=== PATIENT | male | born 1950 | race Hispanic/Latino ===

== ENCOUNTER → 2016-10-01 | Outpatient (CLI) | payer MEDICARE, MEDICAID, SELFPAY | PROVIDERS: Family Provider Family Medicine; PCP Family Medicine; Visit Provider Nurse Practitioner | DX: M54.5 Low back pain (principal); M51.36 Other intervertebral disc degeneration, lumbar region; M48.06 Spinal stenosis, lumbar region; M51.37 Other intervertebral disc degeneration, lumbosacral region; M48.07 Spinal stenosis, lumbosacral region; M47.816 Spondylosis without myelopathy or radiculopathy, lumbar region; M47.817 Spondylosis without myelopathy or radiculopathy, lumbosacral region | CPT/HCPCS: 72148 ==

== ENCOUNTER → 2018-08-25 16:22 | Outpatient (CLI) | payer OTHER, SELFPAY ==
--- NOTE | 2018-08-25 16:29 | DI.RAD.S_ITS ---
PROCEDURE: XR HIP W PEL IF DONE LT MIN 4V INDICATIONS: hip pain TECHNIQUE: AP pelvis with lateral view(s) of the bilateral hip(s). COMPARISON: None. FINDINGS: Bones: No fractures or dislocations. Pelvic ring appears intact. No suspicious bony lesions. Maybe mild degenerative changes of both hips. There are mild degenerative changes of the sacroiliac joints and pubis symphysis. Soft tissues: The visualized bowel gas pattern is normal. No suspicious soft tissue calcifications. IMPRESSION: Mild degenerative changes of the hips. No fractures. Dictated by: Jv Dillon M.D. on 08/25/2018 at 16:56 Approved by: Jv Dillon M.D. on 08/25/2018 at 16:57
[2018-08-25 17:24] LABS: Add Manual Diff / Slide Review NO; Basophils Absolute Auto 0 /uL (0-100); Basophils Percent Auto 0.5 % (0-2); Eosinophils Absolute Auto 200 /uL (0-450); Eosinophils Percent Auto 2.1 % (2-4); Hematocrit 44.6 % (41-53); Hemoglobin 15.4 g/dL (13.5-17.5); Lymphocytes Absolute Auto 2100 /uL (1100-4500); Lymphocytes Percent Auto 28.5 % (25-40); Mean Corpuscular HGB Conc 34.7 % (30-36); Mean Corpuscular Hemoglobin 31.6 PG (26-34); Mean Corpuscular Volume 91.1 fL (80-100); Monocytes Absolute Auto 600 /uL (0-900); Monocytes Percent Auto 7.8 % (3-14); Neutrophils Absolute Auto 4600 /uL (1500-7000); Neutrophils Percent Auto 61.1 % (50-75); Platelet Count 389 X10^3/uL (150-400); Red Blood Cell Count 4.89 X10^6/uL (4.5-5.9); White Blood Cell Count 7.5 X10^3/uL (4.5-11.0)
[2018-08-25 17:30] LABS: Hemoglobin A1C% w Est Avg Glu 6.2 % (4.0-6.0)
[2018-08-25 17:46] LABS: Alanine Aminotransferase 23 IU/L (21-72); Albumin 4.6 g/dL (3.5-5.0); Albumin Globulin Ratio 1.7 (1.0-2.8); Alkaline Phosphatase 63 U/L (38-126); Aspartate Aminotransferase 17 IU/L (17-59); BUN Creatinine Ratio 17.5 (6-22); Bilirubin Total 1.1 mg/dL (0.2-1.3); Blood Urea Nitrogen 14 mg/dL (9-20); Calcium 10.1 mg/dL (8.4-10.2); Carbon Dioxide 27 mmol/L (22-32); Chloride 99 mmol/L (98-107); Cholesterol 163 mg/dL (140-199); Estimated Glomerular Filt Rate > 60.0 mL/min (>60); Globulin 2.7 g/dL (1.7-4.1); Glucose 172 mg/dL (80-110); HDL Cholesterol 40 mg/dL (40-60); HEMOLYSIS < 15 (0-50); Potassium 4.2 mmol/L (3.4-5.1); Sodium 139 mmol/L (137-145); Total Protein 7.3 g/dL (6.3-8.2); Triglycerides 438 mg/dL (35-150)
[2018-08-25 17:47] LABS: C-Reactive Protein Quant < 0.5 mg/dL (<1.0)
[2018-08-25 18:00] LABS: Creatinine Urine Random 86.5 mg/dL
[2018-08-25 18:03] LABS: Microalbumi Creatinin Ratio Ur 17.3 ug/mg CR (<30); Microalbumin Urine Random 1.5 mg/dL (0-1.6)
[2018-08-25 18:13] LABS: TSH w/ Reflex to FT4 1.95 uIU/mL (0.47-4.68)
[2018-08-25 18:20] LABS: Erythrocyte Sedimentation Rate 14 MM/HR (0-15)
== END ==
PROVIDERS: Family Provider Family Medicine; PCP Family Medicine; Visit Provider Family Medicine
DX: M25.551 Pain in right hip (principal); M16.0 Bilateral primary osteoarthritis of hip; I25.10 Atherosclerotic heart disease of native coronary artery without angina pectoris; I10 Essential (primary) hypertension; E78.5 Hyperlipidemia, unspecified; E11.9 Type 2 diabetes mellitus without complications; M25.50 Pain in unspecified joint
CPT/HCPCS: 36415; 73522; 80053; 80061; 82043; 82570; 83036; 84443; 85025; 85651; 86140

== ENCOUNTER → 2020-03-18 15:24 | Outpatient (CLI) | payer MEDICARE, SELFPAY ==
--- NOTE | 2020-03-18 15:26 | DI.RAD.S_ITS ---
PROCEDURE: XR KNEE LT 3V INDICATIONS: left knee pain and swelling TECHNIQUE: 3 views of the knee were acquired. COMPARISON: None. FINDINGS: Bones: No fractures or dislocations. No suspicious bony lesions. Moderate narrowing of the medial femoral tibial joint and tricompartmental periarticular osteophyte formation. Lucency along the medial distal femoral condyle. Soft tissues: Moderate joint effusion. No suspicious soft tissue calcifications. IMPRESSION: Moderate right knee joint effusion and tricompartmental knee joint degeneration, most notably involving the medial femoral tibial joint. Lucency involving the medial distal femoral condyle and osteochondral injury cannot be excluded. If indicated, MRI could be performed for further assessment. Dictated by: Watson Roy [facility] Interpreted: Lorenzo Young MD on 03/18/2020 at 16:52 Approved by: Lorenzo Young M.D. on 03/18/2020 at 17:06
[2020-03-18 16:47] LABS: Add Manual Diff / Slide Review NO; Basophils Absolute Auto 0 /uL (0-100); Basophils Percent Auto 0.7 % (0-2); Eosinophils Absolute Auto 100 /uL (0-450); Eosinophils Percent Auto 1.6 % (2-4); Hematocrit 43.4 % (41-53); Hemoglobin 14.4 g/dL (13.5-17.5); Lymphocytes Absolute Auto 2200 /uL (1100-4500); Lymphocytes Percent Auto 31.9 % (25-40); Mean Corpuscular HGB Conc 33.1 % (30-36); Mean Corpuscular Hemoglobin 30.9 PG (26-34); Mean Corpuscular Volume 93.4 fL (80-100); Monocytes Absolute Auto 600 /uL (0-900); Neutrophils Absolute Auto 3900 /uL (1500-7000); Neutrophils Percent Auto 56.8 % (50-75); Platelet Count 347 X10^3/uL (150-400); Red Blood Cell Count 4.64 X10^6/uL (4.5-5.9); Red Cell Distribution Width 13.9 % (11.6-14.8); White Blood Cell Count 6.9 X10^3/uL (4.5-11.0)
[2020-03-18 16:58] LABS: Alanine Aminotransferase 21 IU/L (<50); Albumin 4.2 g/dL (3.5-5.0); Albumin Globulin Ratio 1.7 (1.0-2.8); Alkaline Phosphatase 91 U/L (38-126); Aspartate Aminotransferase 23 IU/L (17-59); BUN Creatinine Ratio 15.7 (6-22); Bilirubin Total 0.7 mg/dL (0.2-1.3); Blood Urea Nitrogen 13 mg/dL (9-20); Calcium 9.6 mg/dL (8.4-10.2); Carbon Dioxide 23 mmol/L (22-32); Chloride 106 mmol/L (98-107); Cholesterol 127 mg/dL (140-199); Estimated Glomerular Filt Rate > 60.0 mL/min (>60); Globulin 2.5 g/dL (1.7-4.1); Glucose 104 mg/dL (80-110); HDL Cholesterol 53 mg/dL (40-60); HEMOLYSIS < 15 (0-50); LDL Cholesterol Calculated 32 mg/dL (<100); Potassium 4.6 mmol/L (3.4-5.1); Sodium 137 mmol/L (137-145); Total Protein 6.7 g/dL (6.3-8.2); Triglycerides 212 mg/dL (35-150)
[2020-03-18 17:26] LABS: TSH w/ Reflex to FT4 2.02 uIU/mL (0.47-4.68)
[2020-03-19 17:07] LABS: Microalbumin Urine Random 0.9 mg/dL (0-1.6)
[2020-03-19 17:14] LABS: Creatinine Urine Random 84.4 mg/dL; Microalbumi Creatinin Ratio Ur 10.6 ug/mg CR (<30)
== END ==
PROVIDERS: Family Provider Family Medicine; PCP Family Medicine; Referring Provider Family Medicine; Visit Provider Family Medicine
DX: M17.12 Unilateral primary osteoarthritis, left knee (principal); M25.462 Effusion, left knee; M25.562 Pain in left knee; E11.9 Type 2 diabetes mellitus without complications; I10 Essential (primary) hypertension; I25.10 Atherosclerotic heart disease of native coronary artery without angina pectoris; E78.5 Hyperlipidemia, unspecified
CPT/HCPCS: 36415; 73562; 80053; 80061; 82043; 82570; 83036; 84443; 85025

== ENCOUNTER → 2020-11-05 15:58 | Outpatient (CLI) | payer MEDICARE, SELFPAY ==
--- NOTE | 2020-11-05 16:00 | DI.RAD.S_ITS ---
PROCEDURE: XR FOOT RT MIN 3V INDICATIONS: left 5th digit pain TECHNIQUE: 3 views of the foot were acquired. COMPARISON: None. FINDINGS: Bones: No fractures or dislocations. No suspicious bony lesions. Moderate 1st metatarsophalangeal joint space narrowing and small marginal osteophytes present. Soft tissues: No tibiotalar joint effusion. Achilles tendon appears normal. 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 on 11/05/2020 at 15:51
[2020-11-05 18:28] LABS: Hemoglobin A1C% w Est Avg Glu 5.5 % (4.0-6.0)
[2020-11-05 18:35] LABS: BUN Creatinine Ratio 13.3 (6-22); Blood Urea Nitrogen 12 mg/dL (9-20); Calcium 9.6 mg/dL (8.4-10.2); Carbon Dioxide 25 mmol/L (22-32); Chloride 102 mmol/L (98-107); Estimated Glomerular Filt Rate > 60.0 mL/min (>60); Glucose 106 mg/dL (80-110); HEMOLYSIS 18 (0-50); Potassium 4.5 mmol/L (3.4-5.1); Sodium 138 mmol/L (137-145)
[2020-11-05 18:48] LABS: Creatinine Urine Random 107.7 mg/dL
[2020-11-05 18:52] LABS: Microalbumi Creatinin Ratio Ur 16.7 ug/mg CR (<30); Microalbumin Urine Random 1.8 mg/dL (0-1.6)
== END ==
PROVIDERS: Family Provider Family Medicine; PCP Family Medicine; Referring Provider Family Medicine; Visit Provider Family Medicine
DX: M19.071 Primary osteoarthritis, right ankle and foot (principal); M79.672 Pain in left foot; E11.9 Type 2 diabetes mellitus without complications; E78.5 Hyperlipidemia, unspecified; I10 Essential (primary) hypertension; I25.10 Atherosclerotic heart disease of native coronary artery without angina pectoris
CPT/HCPCS: 36415; 73630; 80048; 82043; 82570; 83036

== ENCOUNTER → 2020-12-04 14:12 | Outpatient (CLI) | payer MEDICARE, SELFPAY ==
--- NOTE | 2020-12-04 14:15 | DI.US.S_ITS ---
PROCEDURE: US CAROTID DOPPLER BI INDICATIONS: VISION CHANGES; RIGHT NECK SWELLING TECHNIQUE: Color and pulse Doppler interrogation was performed of both carotid systems, with image documentation and velocity measurements. COMPARISON: None. FINDINGS: Stenosis calculations are based on SRU (Society of Radiologists in Ultrasound) criteria. The flow velocities and the arterial waveforms are normal within both carotid arterial systems. Mild atherosclerotic plaque is seen on both sides. The estimated degree of internal carotid artery stenosis is less than 50%. Antegrade flow is confirmed within both vertebral arteries. Scanning is performed at the area of clinical right neck swelling. No ultrasound abnormalities can be seen at this site. IMPRESSION: No hemodynamically significant stenosis is seen. No ultrasound abnormalities are seen at the area of clinical swelling involving the right neck. Dictated by: Félix Mitchell M.D. on 12/04/2020 at 14:25 Approved by: Félix Mitchell M.D. on 12/04/2020 at 14:25
== END ==
PROVIDERS: Family Provider Family Medicine; PCP Family Medicine; Referring Provider Physician Assistant; Visit Provider Physician Assistant
DX: R22.1 Localized swelling, mass and lump, neck (principal); H53.9 Unspecified visual disturbance; M54.2 Cervicalgia
CPT/HCPCS: 93880

== ENCOUNTER → 2020-12-25 11:39 | Outpatient (CLI) | payer MEDICARE, SELFPAY ==
--- NOTE | 2020-12-25 11:40 | DI.RAD.S_ITS ---
PROCEDURE: XR CERVICAL SPINE 2V OR 3V INDICATIONS: Persistent R sided neck pain Suspect DJD/DDD TECHNIQUE: 3 view(s) of the cervical spine were acquired. COMPARISON: None. FINDINGS: Bones: No fractures or dislocations to the T1 level. The lateral masses of C1 appear intact on the odontoid view. No suspicious bony lesions. Disc space narrowing present throughout the exam. Mild hypertrophic facet joints present. Craniovertebral relationships and bone mineralization normal. Soft tissues: No prevertebral soft tissue swelling. IMPRESSION: Mild degenerative disc disease and arthropathy Approved by: Javy Dumont M.D. on 12/25/2020 at 16:21
== END ==
PROVIDERS: Family Provider Family Medicine; PCP Family Medicine; Referring Provider Physician Assistant; Visit Provider Physician Assistant
DX: R51.9 Headache, unspecified (principal); M47.812 Spondylosis without myelopathy or radiculopathy, cervical region; M50.30 Other cervical disc degeneration, unspecified cervical region
CPT/HCPCS: 72040

== ENCOUNTER → 2021-04-02 11:46 | Outpatient (CLI) | payer MEDICARE, SELFPAY ==
[2021-04-02 13:06] LABS: Add Manual Diff / Slide Review NO; Basophils Absolute Auto 0 /uL (0-100); Basophils Percent Auto 0.6 % (0-2); Eosinophils Absolute Auto 200 /uL (0-450); Hematocrit 43.4 % (41-53); Hemoglobin 14.8 g/dL (13.5-17.5); Lymphocytes Absolute Auto 1500 /uL (1100-4500); Mean Corpuscular HGB Conc 34.1 % (30-36); Mean Corpuscular Volume 93.8 fL (80-100); Monocytes Absolute Auto 500 /uL (0-900); Monocytes Percent Auto 7.9 % (3-14); Neutrophils Absolute Auto 3900 /uL (1500-7000); Neutrophils Percent Auto 63.5 % (50-75); Platelet Count 362 X10^3/uL (150-400); Red Blood Cell Count 4.62 X10^6/uL (4.5-5.9); Red Cell Distribution Width 13.3 % (11.6-14.8); White Blood Cell Count 6.2 X10^3/uL (4.5-11.0)
[2021-04-02 16:16] LABS: Clostridium Difficile Tox PCR Negative for C. diff (Negative)
== END ==
PROVIDERS: Family Provider Family Medicine; PCP Family Medicine; Referring Provider Physician Assistant; Visit Provider Physician Assistant
DX: R10.30 Lower abdominal pain, unspecified (principal); R19.7 Diarrhea, unspecified
CPT/HCPCS: 36415; 85025; 87045; 87493; 87899

== ENCOUNTER → 2021-07-29 16:46 | Outpatient (CLI) | payer MEDICARE, SELFPAY ==
[2021-07-29 17:28] LABS: Add Manual Diff / Slide Review NO; Basophils Absolute Auto 100 /uL (0-100); Basophils Percent Auto 1.3 % (0-2); Eosinophils Absolute Auto 100 /uL (0-450); Eosinophils Percent Auto 1.5 % (2-4); Hematocrit 42.3 % (41-53); Hemoglobin 14.9 g/dL (13.5-17.5); Lymphocytes Absolute Auto 1800 /uL (1100-4500); Lymphocytes Percent Auto 19.5 % (25-40); Mean Corpuscular HGB Conc 35.3 % (30-36); Mean Corpuscular Volume 90.8 fL (80-100); Monocytes Absolute Auto 700 /uL (0-900); Monocytes Percent Auto 8.2 % (3-14); Neutrophils Absolute Auto 6300 /uL (1500-7000); Neutrophils Percent Auto 69.5 % (50-75); Platelet Count 371 X10^3/uL (150-400); Red Blood Cell Count 4.65 X10^6/uL (4.5-5.9); Red Cell Distribution Width 13.2 % (11.6-14.8)
[2021-07-29 17:54] LABS: HEMOLYSIS < 15 (0-50); Iron 86 ug/dL (49-181)
[2021-07-29 17:56] LABS: Alanine Aminotransferase 31 IU/L (<50); Albumin 4.6 g/dL (3.5-5.0); Albumin Globulin Ratio 1.6 (1.0-2.8); Alkaline Phosphatase 95 U/L (38-126); Aspartate Aminotransferase 26 IU/L (17-59); Bilirubin Total 0.8 mg/dL (0.2-1.3); Blood Urea Nitrogen 13 mg/dL (9-20); C-Reactive Protein Quant 0.8 mg/dL (<1.0); Calcium 9.7 mg/dL (8.4-10.2); Carbon Dioxide 23 mmol/L (22-32); Chloride 103 mmol/L (98-107); Estimated Glomerular Filt Rate > 60 mL/min (>60); Globulin 2.9 g/dL (1.7-4.1); Glucose 127 mg/dL (80-110); HEMOLYSIS < 15 (0-50); Potassium 4.4 mmol/L (3.4-5.1); Sodium 138 mmol/L (137-145); Total Protein 7.5 g/dL (6.3-8.2)
[2021-07-29 18:05] LABS: Percent Iron Saturation 24 % (20-50); Total Iron Binding Capacity 354 ug/dL (261-462); Transferrin 270 mg/dL (206-381)
[2021-07-29 18:26] LABS: TSH w/ Reflex to FT4 1.24 uIU/mL (0.47-4.68)
[2021-07-29 18:43] LABS: Vitamin B12 314 pg/mL (239-931)
[2021-07-29 19:20] LABS: Erythrocyte Sedimentation Rate 44 MM/HR (0-15)
== END ==
PROVIDERS: Family Provider Family Medicine; PCP Family Medicine; Referring Provider Physician Assistant; Visit Provider Physician Assistant
DX: M79.10 Myalgia, unspecified site (principal); H54.7 Unspecified visual loss; R53.83 Other fatigue; E11.9 Type 2 diabetes mellitus without complications
CPT/HCPCS: 36415; 80053; 82607; 83036; 83540; 83550; 84443; 85025; 85651; 86140; 93005

== ENCOUNTER → 2021-08-15 08:57 | Outpatient (CLI) | payer MEDICARE, SELFPAY ==
--- NOTE | 2021-08-15 08:59 | DI.NM.S_ITS ---
PROCEDURE: NM TANVIR PERF SPECT R&S PHARM Rest and pharmacological stress myocardial perfusion SPECT with gated imaging and ejection fraction RADIOPHARMACEUTICAL: 11.7 mCi Tc-99m tetrafosmin IV at rest and 25.5 mCi Tc-99m tetrafosmin IV at peak effect of pharmacological stress. [id number] was performed. INDICATIONS: Hx of STEMI w/stent; upper chest back pain TECHNIQUE: Radiopharmaceutical was injected at peak stress test, and also at rest. SPECT images were obtained. SPECT myocardial perfusion images were displayed in short axis, horizontal long axis, and vertical long axis views. Gated images were reviewed using [employer] software. COMPARISON: None. CARDIAC STRESS: A pharmacologic stress test was performed under the supervision of an attending staff, using an infusion of regadenoson. Hemodynamic data: There is normal blood pressure and heart rate response to pharmacologic stress. Symptoms: The patient denied anginal chest pain. EKG: No diagnostic changes of ischemia; no ectopy. FINDINGS: Raw data: There is good myocardial uptake of radiotracer. No significant motion artifacts. Fnlp-bd-rffcd ratio is 0.28 (normal is less than 0.38 for tetrafosmin tracer). Left ventricle function: Gated images demonstrate normal left ventricular wall thickening. No segmental wall motion abnormalities. No transient ischemic dilation; TID is 1.0 (normal less than 1.3). Left ventricle resting end diastolic volume is 96 mL. Left ventricle stress ejection fraction is >75%; normal range is above 45%. Myocardial perfusion: There is small size, mild intensity inferoapical fixed defect with near complete resolution on prone imaging when compared to rest and supine imaging. Normal wall motion. IMPRESSION: Low risk test. Small inferoapical fixed defect with near complete resolution on prone imaging with normal wall motion is most likely consistent with artifact rather than scar. No definite ischemia. Dictated by: Amalia Patterson D.O. on 08/15/2021 at 17:46 Approved by: Amalia Patterson D.O. on 08/15/2021 at 17:51
[2021-08-15 10:55] LABS: COVID19 -Nasal RAPID Negative (Negative)
--- NOTE | 2021-08-15 14:23 | PM.TREADMILL ---
Cardiac Stress Test Report Referral & Results Date Patient Seen: 08/15/21 Requesting provider: Radha Loco Indication: Chest discomfort Rest ECG: Right bundle branch block Procedure Note: After both written and verbal informed consent the patient had an IV started by the diagnostic imaging RN and then was hooked up to the treadmill monitoring system. The patient was placed on the treadmill at 1 mile an hour with no elevation and was then injected with the Amanda scan material. The Cardiolite was then immediately administered. The patient spent an additional 2-3 minutes on the treadmill before being returned to the [facility] in the supine position. The patient had a normal response to all infused materials. Impression: Normal response to infuse materials Please see perfusion imaging report for details regarding possible ischemia Please note: Actual ECG tracings can be found in the PACS system.
== END ==
PROVIDERS: Family Provider Family Medicine; PCP Family Medicine; Referring Provider Physician Assistant; Visit Provider Physician Assistant
DX: R07.89 Other chest pain (principal); I10 Essential (primary) hypertension; I25.118 Atherosclerotic heart disease of native coronary artery with other forms of angina pectoris; E11.9 Type 2 diabetes mellitus without complications; M54.9 Dorsalgia, unspecified; R53.83 Other fatigue; Z20.822 Contact with and (suspected) exposure to COVID-19
CPT/HCPCS: 78452; 87635; 93016; 93017; 93018; A9502; J2785

== ENCOUNTER → 2022-01-06 09:25 | Outpatient (CLI) | payer MEDICARE, SELFPAY ==
[2022-01-06 12:58] LABS: Hemoglobin A1C% w Est Avg Glu 5.8 % (4.0-6.0)
[2022-01-06 13:07] LABS: Add Manual Diff / Slide Review NO; Basophils Absolute Auto 0 /uL (0-100); Basophils Percent Auto 0.4 % (0-2); Eosinophils Absolute Auto 300 /uL (0-450); Hematocrit 42.7 % (41-53); Hemoglobin 14.3 g/dL (13.5-17.5); Lymphocytes Absolute Auto 1700 /uL (1100-4500); Lymphocytes Percent Auto 22.7 % (25-40); Mean Corpuscular HGB Conc 33.6 % (30-36); Mean Corpuscular Hemoglobin 31.5 PG (26-34); Mean Corpuscular Volume 93.8 fL (80-100); Monocytes Absolute Auto 400 /uL (0-900); Monocytes Percent Auto 5.9 % (3-14); Neutrophils Absolute Auto 4900 /uL (1500-7000); Platelet Count 353 X10^3/uL (150-400); Red Blood Cell Count 4.55 X10^6/uL (4.5-5.9); Red Cell Distribution Width 13.8 % (11.6-14.8); White Blood Cell Count 7.3 X10^3/uL (4.5-11.0)
[2022-01-06 13:21] LABS: Alanine Aminotransferase 24 IU/L (<50); Albumin 4.3 g/dL (3.5-5.0); Albumin Globulin Ratio 1.7 (1.0-2.8); Alkaline Phosphatase 78 U/L (38-126); Aspartate Aminotransferase 20 IU/L (17-59); BUN Creatinine Ratio 12.5 (6-22); Blood Urea Nitrogen 11 mg/dL (9-20); Calcium 9.2 mg/dL (8.4-10.2); Carbon Dioxide 23 mmol/L (22-32); Chloride 104 mmol/L (98-107); Estimated Glomerular Filt Rate > 60 mL/min (>60); Globulin 2.6 g/dL (1.7-4.1); Glucose 102 mg/dL (80-110); HEMOLYSIS < 15 (0-50); Potassium 4.9 mmol/L (3.4-5.1); Sodium 139 mmol/L (137-145); Total Protein 6.9 g/dL (6.3-8.2)
[2022-01-06 13:44] LABS: TSH w/ Reflex to FT4 1.33 uIU/mL (0.47-4.68)
== END ==
PROVIDERS: Family Provider Family Medicine; PCP Family Medicine; Referring Provider Family Medicine; Visit Provider Family Medicine
DX: I10 Essential (primary) hypertension (principal); E11.9 Type 2 diabetes mellitus without complications; E78.2 Mixed hyperlipidemia; I25.118 Atherosclerotic heart disease of native coronary artery with other forms of angina pectoris
CPT/HCPCS: 36415; 80053; 83036; 84443; 85025

== ENCOUNTER → 2022-08-12 12:28 | Outpatient (CLI) | payer MEDICARE, SELFPAY ==
[2022-08-12 13:35] LABS: Cholesterol 140 mg/dL (140-199); HDL Cholesterol 41 mg/dL (40-60); LDL Cholesterol Calculated 30 mg/dL (<100); Triglycerides 347 mg/dL (35-150)
[2022-08-12 15:17] LABS: Creatinine Urine Random 188.5 mg/dL
[2022-08-12 15:20] LABS: Microalbumi Creatinin Ratio Ur 23.3 ug/mg CR (<30); Microalbumin Urine Random 4.4 mg/dL (0-1.6)
[2022-08-13 04:27] LABS: x Labcorp Estim. Avg Glu (eAG) 128 mg/dL (.); x Labcorp Hemoglobin A1c 6.1 % (4.8-5.6)
== END ==
PROVIDERS: Family Provider Family Medicine; PCP Family Medicine; Referring Provider Family Medicine; Visit Provider Family Medicine
DX: E11.9 Type 2 diabetes mellitus without complications (principal); E78.2 Mixed hyperlipidemia; I10 Essential (primary) hypertension
CPT/HCPCS: 36415; 80061; 82043; 82570; 83036

== ENCOUNTER → 2022-09-16 12:21 | Outpatient (CLI) | payer MEDICARE, SELFPAY ==
--- NOTE | 2022-09-16 12:22 | DI.CT.S_ITS ---
PROCEDURE: CT ABDOMEN PELVIS WO CON INDICATIONS: abdominal pain, bloating, nausea. has known umbilical hernia TECHNIQUE: Noncontrast 5 mm thick sections acquired from the diaphragms to the symphysis. 5 mm coronal and sagittal reformats were then performed. For radiation dose reduction, the following was used: automated exposure control, adjustment of mA and/or kV according to patient size. COMPARISON: None. FINDINGS: Image quality: Excellent. ABDOMEN: Lung bases: Lung bases are clear. Heart size is normal. Mild coronary artery calcification. Trace pericardial effusion. Solid organs: The liver margin is smooth. There is mild diffuse hepatic hypodensity. No discrete mass. The gallbladder surgically absent. The common duct is appropriate post cholecystectomy. Pancreas is diminutive without ductal dilatation. Normal spleen with a splenule in the inferior hilum. No adrenal masses. Normal kidneys without nephrolithiasis or hydronephrosis. No hydroureter. Peritoneum and bowel: There is moderate diverticulosis of the sigmoid colon. The colon is otherwise normal. Normal appendix. Normal stomach and small bowel loops. No free fluid or free air. Nodes and vessels: No retroperitoneal or mesenteric adenopathy by size criteria. Aorta and inferior vena cava are normal in caliber. Miscellaneous: There is a slightly narrow necked fat containing umbilical hernia with mild induration of the herniated omental fat and slightly thickened hernia sac. The neck measures 1.5 cm. There is no herniated fluid or bowel. No other midline hernias are seen. PELVIS: Genitourinary: Bladder wall thickness is normal. Moderate prostatic Miscellaneous: There is been a prior right inguinal hernia repair. Very small fat containing left inguinal hernia. No pelvic adenopathy. Bones: No suspicious bony lesions. No vertebral body compression fractures. IMPRESSION: 1. Known, mildly inflamed fat containing wall hernia. 2. Prior right inguinal hernia repair and cholecystectomy. 3. Mild hepatic steatosis. Dictated by: Malathi Plunkett M.D. on 09/16/2022 at 13:48 Approved by: Malathi Plunkett M.D. on 09/16/2022 at 13:54
== END ==
PROVIDERS: Family Provider Family Medicine; PCP Family Medicine; Referring Provider Surgery; Visit Provider Surgery
DX: K42.9 Umbilical hernia without obstruction or gangrene (principal); K57.30 Diverticulosis of large intestine without perforation or abscess without bleeding; K40.90 Unilateral inguinal hernia, without obstruction or gangrene, not specified as recurrent; K76.0 Fatty (change of) liver, not elsewhere classified; R19.7 Diarrhea, unspecified; R14.0 Abdominal distension (gaseous); R11.0 Nausea; R10.9 Unspecified abdominal pain; Z90.49 Acquired absence of other specified parts of digestive tract
CPT/HCPCS: 74176

== ENCOUNTER 2022-11-06 09:42 | Day surgery (SDC) | payer MEDICARE, SELFPAY ==
--- NOTE | 2022-11-06 | PATH_ITS ---
[facility] Accession Number: [id number] No. of containers..01 Tissue . 01 Material submitted: . colon - TRANSVERSE POLYP . 01 Diagnosis: Transverse Colon, Polyp: Tubular adenoma. [facility] 11/13/2022 1558 Local . 01 Electronically signed: . Charleen Stringer MD, Pathologist NPI- [id number] . 01 Gross description: . TRANSVERSE POLYP: Received in formalin is 1 fragment(s) of freeman, soft tissue measuring 0.4 x 0.3 x 0.2 cm submitted entirely in 1 cassette(s) /AAY 11/10/2022 0024 Local . 01 Pathologist provided ICD-10: D12.3 . 01 CPT . 809148 Specimen Comment: A courtesy copy of this report has been sent to [facility] Performed at: 01 [facility] [address] [place] [address] [id number] MD Alonzo Ortiz MD Phone: [phone]
[2022-11-06 09:55] VITALS: BP 126/84; PULSE 69; RESP 16; TEMP 36.4; O2SAT 97; BMI 29.5
[2022-11-06] MEDS: FLEETS ENEMA 1 EACH PR (10:38)
[2022-11-06] MEDS: LACTATED RINGERS 1,000 ML 42 ML IV (10:39)
--- NOTE | 2022-11-06 11:25 | P.HP_ITS ---
History of Present Illness History of Present Illness Date Patient Seen: 11/06/22 Time Patient Seen: 11:25 [place] [facility] [place] Mr. Eliceo Farias is a 72-year-old male who I have seen in my office and have discussed colonoscopy previously. This is his 2nd colonoscopy the 1st 1 was 12 years ago and [place]. He does not recall any history of polyps and has no family history of colon cancer. He has no concerning symptoms of bleeding changes in bowel habits, has no further questions and would like to proceed. He did receive an enema in the preoperative unit because the stool was solid according to the bedside nurse. I offered him the option of continuing the prep and asking if 1 of my partners would do the procedure tomorrow while he stays in observation were completely rescheduling or proceeding today knowing that we may not see what we need to see and have to reschedule any way. He understood the options and chose to proceed today. [facility] Medical History Anxiety Arthritis (1999) Bilateral hip pain BPH (benign prostatic hyperplasia) Chest wall pain Chicken pox (~195) Chronic back pain Coronary artery disease Coronary atherosclerosis (2012) Elevated PSA Essential hypertension (11/11/11) Glaucoma (2014) Hearing loss History of [place] fever (1979) Hyperlipidemia (11/11/11) Lumbar stenosis with neurogenic claudication Malaria (~1969) Mumps (~1954) Myocardial infarction (01/2013) Osteoarthritis of spine with radiculopathy, lumbar region (12/14/16) Pneumonia (~1999) Preglaucoma, unspecified, bilateral Retinal detachment (2000) Retinal vein occlusion of right eye (2013) Shoulder pain (2010) Type 2 diabetes mellitus without complication (03/29/12) Surgical History Anesthesia complication (12/2010) H/O heart artery stent (01/2013) H/O inguinal hernia repair (05/1992) History of detached retina repair (2000) Status post cholecystectomy (~2003) Status post epidural steroid injection (04/16/17) Status post epidural steroid injection Status post epidural steroid injection (04/16/17) Status post epidural steroid injection Status post epidural steroid injection Status post rotator cuff repair (12/2010) Family History Father Age: 94 Hypertension High cholesterol Family/Other No problems noted. Family/Other No problems noted. Mother No problems noted. Sister No problems noted. Sister No problems noted. Sister No problems noted. Social History marital status: household members: spouse Smoking Status: Never smoker alcohol intake: never substance use type: does not use Meds Home Medications and Allergies Home Medications Medication Instructions Recorded Confirmed Type atorvastatin 40 mg tablet (Lipitor) 40 mg PO DAILY 11/01/19 11/06/22 History cimetidine 200 mg tablet (Tagamet 200 mg PO QACHS 04/02/21 11/06/22 History HB) acetaminophen 300 mg-codeine 30 mg 1 tab PO DAILY PRN pain #30 tabs 03/26/22 11/06/22 Rx tablet metformin 1,000 mg tablet See Rx Instructions .Route 03/27/22 11/06/22 Rx .COMPLEX #180 tabs blood sugar diagnostic (OneTouch #100 ea 04/27/22 09/29/22 Rx Ultra Test strips) amlodipine 10 mg tablet 10 mg PO DAILY 05/14/22 11/06/22 History aspirin 81 mg chewable tablet 81 mg PO QDAY ##0 05/14/22 11/06/22 History albuterol sulfate 90 mcg/actuation See Rx Instructions .Route 06/10/22 11/06/22 Rx aerosol inhaler .COMPLEX #9 grams tamsulosin 0.4 mg capsule See Rx Instructions .Route 06/11/22 11/06/22 Rx .COMPLEX #90 caps glipizide 5 mg tablet 5 mg PO DAILY #90 tabs 07/20/22 11/06/22 Rx Disabled Parking #1 ea 07/28/22 09/29/22 Rx finasteride 5 mg tablet See Rx Instructions .Route 08/13/22 11/06/22 Rx .COMPLEX #90 tabs zolpidem 10 mg tablet 5 mg PO BEDTIME PRN insomnia #30 10/07/22 11/06/22 Rx tabs metoprolol succinate 50 mg 75 mg PO BID #270 tabs 10/13/22 11/06/22 Rx tablet,extended release 24 hr sodium,potassium,mag sulfates 17.5 See Rx Instructions PO .COMPLEX 10/13/22 11/06/22 Rx gram-3.13 gram-1.6 gram oral soln #354 mL (Suprep Bowel Prep Kit) Allergies Allergy/AdvReac Type Severity Reaction Status Date / Time venom-honey bee Allergy Severe Anaphylaxis Verified 09/29/22 11:32 [BEE VENOM (HONEY BEE)] methylprednisolone AdvReac Severe psychosis Verified 11/06/22 10:43 [From Medrol] lisinopril AdvReac Mild Cough Verified 09/29/22 11:32 niacin AdvReac Mild FLUSHING Verified 09/29/22 11:32 NSAIDS (Non-Steroidal AdvReac Unknown Verified 11/06/22 10:41 Anti-Inflamma Exam Vital Signs (past 8 hours): - 11/06/22 09:55 Temperature 97.5 F L Pulse Rate 69 Respiratory Rate 16 Blood Pressure 126/84 Pulse Oximetry 97 Oxygen Delivery Method Room Air Oxygen Delivery Method Room Air Const General: cooperative, healthy appearing and comfortable HENMT Head: normal to inspection Mouth: oral mucosae normal Resp Effort & Inspection: normal respiratory effort and able to speak in complete sentences GI Palpation: soft and No tender Assessment & Plan Assessment and plan (1) Screening for colon cancer: Status: Acute Plan Presents today for screening colonoscopy I discussed the risks benefits and alternatives including but not limited to perforation of the colon and an incomplete exam he fully understands these risks and would like to proceed.
--- NOTE | 2022-11-06 12:19 | PM.OP.COLON ---
Operative Date/Time/Diagnoses Date of procedure: 11/06/22 Time of procedure: 12:19 Pre-op diagnosis: Screening for colon cancer Post-op diagnosis: same Procedure & Clinicians Study performed: Colonoscopy biopsy Same procedure as scheduled: Yes Indications: Screening for colon cancer no family history Surgeon: Meg Conde Procedure Notes Procedure in detail: Patient was taken to the endoscopy suite and placed in a left lateral decubitus position. A time-out was performed. With the help of anesthesiologist conscious sedation was induced and monitored throughout the case. A digital rectal exam was performed and there were no masses or strictures. There was a left lateral external hemorrhoid. The colonoscope was introduced into the anal canal and advanced through to the cecum. A photograph of the appendiceal orifice was obtained. The bowel prep was between poor and good [place] bowel prep score of 1. Although there were segments of the colon where an adequate exam was achieved there were other segments where smaller polyps may have been missed due to the thickness of the prep. The scope was then withdrawn for a total of 20 minutes with copious suction and irrigation making every effort to examine the mucosa as well as possible. One very small transverse colon polyp was seen and removed with a biopsy forceps. There were also scattered diverticula throughout the sigmoid colon. The scope was then retroflexed and a photograph of the internal hemorrhoidal piles was obtained. Findings: divertiulosis Specimen(s): other (Transverse colon polyp) Impression: Poor bowel prep [place] bowel prep score of 1 Post-procedure Plan for aftercare: I think that I achieved an adequate exam to say that there were no large polyps and no colon cancer however a I am concerned that some smaller polyps may have been overlooked and therefore I am recommending a 5 year follow-up because of the quality of the prep.
[2022-11-06 12:23] VITALS: BP 113/70; PULSE 56; RESP 10; TEMP 36.9; O2SAT 96
[2022-11-06 12:28] VITALS: BP 116/69; PULSE 64; RESP 14; O2SAT 93
[2022-11-06 12:34] VITALS: BP 114/76; PULSE 58; RESP 12; O2SAT 95
[2022-11-06 12:39] VITALS: BP 128/83; PULSE 56; RESP 13; O2SAT 96
== END 2022-11-06 12:55 | disposition home or self-care (01) ==
PROVIDERS: Family Provider Family Medicine; PCP Family Medicine; Referring Provider Surgery; Visit Provider Surgery
PROC: 0DJD8ZZ Inspection of Lower Intestinal Tract, Via Natural or Artificial Opening Endoscopic (ICD-10-PCS; CPT 45378; principal; 2022-11-06 11:00)
DX: Z12.11 Encounter for screening for malignant neoplasm of colon (principal); K57.30 Diverticulosis of large intestine without perforation or abscess without bleeding; D12.3 Benign neoplasm of transverse colon
CPT/HCPCS: 45380; J2704

== ENCOUNTER 2023-02-03 10:56 | Day surgery (SDC) | payer OTHER, MEDICARE, SELFPAY ==
[2023-02-01 13:49] VITALS: BMI 28.8
[2023-02-03] VITALS (9 sets, daily range): BP systolic 108–165; BP diastolic 69–89; PULSE 70–700; RESP 14–20; TEMP 36.3–36.6; O2SAT 94–96; BMI 29.6
[2023-02-03] MEDS: LACTATED RINGERS 1,000 ML 21 ML IV ×2 (11:41→13:24)
--- NOTE | 2023-02-03 12:39 | P.HP_ITS ---
History of Present Illness History of Present Illness Date Patient Seen: 02/03/23 Time Patient Seen: 12:39 [place] complaint: [facility] [place]arrative: 72-year-old here for elective open umbilical hernia repair. No interval changes in health. Please refer to the H and P from December 2022 for further detail. [facility] Medical History Preglaucoma, unspecified, bilateral Lumbar stenosis with neurogenic claudication Chest wall pain Coronary artery disease Pneumonia (~1999) Bilateral hip pain Chronic back pain Arthritis (1999) Shoulder pain (2010) Malaria (~1969) Retinal vein occlusion of right eye (2013) Retinal detachment (2000) Hearing loss Glaucoma (2014) Elevated PSA Coronary atherosclerosis (2012) Myocardial infarction (01/2013) Chicken pox (~1954) BPH (benign prostatic hyperplasia) Mumps (~1954) Anxiety History of [facility] fever (1979) Osteoarthritis of spine with radiculopathy, lumbar region (12/14/16) Type 2 diabetes mellitus without complication (03/29/12) Hyperlipidemia (11/11/11) Essential hypertension (11/11/11) Surgical History (Updated 02/01/23 @ 13:59 by Liberty Espinoza RN) Hx of colonoscopy (11/2022) Status post epidural steroid injection Status post epidural steroid injection Status post epidural steroid injection (04/16/17) Status post epidural steroid injection Status post epidural steroid injection (04/16/17) Anesthesia complication (12/2010) H/O heart artery stent (01/2013) History of detached retina repair (2000) H/O inguinal hernia repair (05/1992) Status post rotator cuff repair (12/2010) Status post cholecystectomy (~2003) Family History Father Age: 94 Hypertension High cholesterol Family/Other No problems noted. Family/Other No problems noted. Mother No problems noted. Sister No problems noted. Sister No problems noted. Sister No problems noted. Social History marital status: household members: spouse Smoking Status: Never smoker alcohol intake: never substance use type: does not use Meds Home Medications and Allergies Home Medications Medication Instructions Recorded Confirmed Type atorvastatin 40 mg tablet (Lipitor) 40 mg PO DAILY 11/01/19 02/03/23 History cimetidine 200 mg tablet (Tagamet 200 mg PO QACHS 04/02/21 02/03/23 History HB) blood sugar diagnostic (OneTouch #100 ea 04/27/22 12/31/22 Rx Ultra Test strips) amlodipine 10 mg tablet 10 mg PO DAILY 05/14/22 02/03/23 History aspirin 81 mg chewable tablet 81 mg PO QDAY ##0 05/14/22 02/03/23 History albuterol sulfate 90 mcg/actuation See Rx Instructions .Route 06/10/22 02/03/23 Rx aerosol inhaler .COMPLEX #9 grams tamsulosin 0.4 mg capsule See Rx Instructions .Route 06/11/22 02/03/23 Rx .COMPLEX #90 caps glipizide 5 mg tablet 5 mg PO DAILY #90 tabs 07/20/22 02/03/23 Rx Disabled Parking #1 ea 07/28/22 12/31/22 Rx finasteride 5 mg tablet See Rx Instructions .Route 08/13/22 02/03/23 Rx .COMPLEX #90 tabs zolpidem 10 mg tablet 5 mg (1/2 x 10 mg) PO BEDTIME PRN 10/07/22 02/03/23 Rx insomnia #30 tabs metoprolol succinate 50 mg 75 mg (1.5 x 50 mg) PO BID #270 10/13/22 02/03/23 Rx tablet,extended release 24 hr tabs acetaminophen 300 mg-codeine 30 mg 1 tab PO DAILY PRN pain #20 tabs 12/28/22 02/03/23 Rx tablet metformin 1,000 mg tablet 1,000 mg PO BID #180 tabs 01/11/23 02/03/23 Rx Allergies Allergy/AdvReac Type Severity Reaction Status Date / Time venom-honey bee Allergy Severe Anaphylaxis Verified 02/03/23 11:34 [BEE VENOM (HONEY BEE)] methylprednisolone AdvReac Severe psychosis Verified 02/03/23 11:34 [From Medrol] lisinopril AdvReac Mild Cough Verified 02/03/23 11:34 niacin AdvReac Mild FLUSHING Verified 02/03/23 11:34 NSAIDS (Non-Steroidal AdvReac Unknown Verified 02/03/23 11:34 Anti-Inflamma Exam Vital Signs (past 8 hours): - 11/29/23 11:22 Temperature 97.7 F Pulse Rate 70 Respiratory Rate 17 Blood Pressure 165/89 H Pulse Oximetry 95 Oxygen Delivery Method Room Air Oxygen Delivery Method Room Air Narrative Exam Narrative: General adult man alert oriented no acute distress Abdomen soft nontender reducible umbilical hernia. Assessment & Plan Assessment & Plan narrative: 72-year-old male with a reducible symptomatic umbilical hernia here for elective repair. Overview of the operation again discussed. Major operative risks including hemorrhage, infection, recurrence were discussed. Questions have been answered. He provides his written and verbal consent to proceed.
--- NOTE | 2023-02-03 12:40 | SUR.OPER ---
Supine on padded OR bed, head on pillow, arms secured on padded arm boards at <90 degrees abduction, legs uncrossed, safety belt at thigh, tape over blanket over lower legs.
[2023-02-03] MEDS: CEFAZOLIN 2 GM/100 ML PREMIX 100 ML IV (12:55)
[2023-02-03] MEDS: BUPIVACAINE 0.25% (PF) VIAL 30 ML INJ (13:09)
--- NOTE | 2023-02-03 13:56 | PM.OP.1 ---
Operative Date/Time/Diagnoses Date of procedure: 02/03/23 Time of procedure: 14:53 Pre-op diagnosis: Umbilical hernia Post-op diagnosis: same Procedure & Clinicians Procedure: Open umbilical hernia repair Same procedure as scheduled: Yes Indications: Symptomatic reducible umbilical hernia Surgeon: Josh Mendosa Click Yes if Unassisted: Yes Anesthesia Type: General Operative Notes Findings: 2 cm fascial defect containing viable omentum Specimen(s): none sent Estimated Blood Loss (mL): 20 Procedure in detail: Patient was brought to the operating room placed supine on the table. Bilateral lower extremity compression devices were applied. General anesthesia was induced and they were intubated with an endotracheal tube. They received 2 g of Ancef prior to skin incision. They were prepped and draped in sterile fashion. A time-out was performed. A curvilinear incision was made inferior to the umbilicus. The subcutaneous tissues were divided. The umbilical hernia was identified and the hernia sac was dissected off the umbilical skin and circumferentially off of the fascia defect. The hernia sac was sharply opened and contained viable omentum. The omentum was reduced back into the abdomen. Using blunt dissection I carefully carefully freed the hernia sac from beneath the fascia defect in order to accomodate the mesh. The fascia defect was 2 cm in maximal diameter. A Bard Ventralex ST hernia patch 6.4 cm was inserted beneath the fascia defect and above the peritoneum in a sublay position. The mesh was anchored in multiple locations using Ethibond suture to the fascia and the fascial defect was closed over the mesh. The umbilical skin was tacked to the subcutaneous tissues and then the remainder of the subcutaneous tissues were reapproximated using 3 0 Vicry,l skin closed with 4 0 Monocryl followed by the application of Dermabond . Sponge instrument count at the end of the operation was correct. Patient tolerated procedure well was extubated and transferred to postoperative care unit in stable condition. Complications: none Post-operative Condition: stable Disposition: same day surgery
[2023-02-03] MEDS: ACETAMINOPHEN 325 MG TABLET 975 MG PO (14:10)
[2023-02-03] MEDS: OXYCODONE IR 5 MG TABLET PO ×2 (14:10→14:57)
== END 2023-02-03 15:00 | disposition home or self-care (01) ==
PROVIDERS: Family Provider Family Medicine; PCP Family Medicine; Referring Provider Surgery; Visit Provider Surgery
PROC: (CPT 49591; principal; 2023-02-03 12:45)
DX: K42.9 Umbilical hernia without obstruction or gangrene (principal)
CPT/HCPCS: 49591; 82962; J0690; J1100; J2405; J3010

== ENCOUNTER → 2023-09-21 12:56 | Outpatient (CLI) | payer MEDICARE, SELFPAY ==
[2023-09-21 14:23] LABS: Add Manual Diff / Slide Review NO; Basophils Absolute Auto 0 /uL (0-100); Basophils Percent Auto 0.7 % (0-2); Eosinophils Absolute Auto 200 /uL (0-450); Eosinophils Percent Auto 3.4 % (2-4); Hematocrit 42.6 % (41-53); Hemoglobin 14.6 g/dL (13.5-17.5); Lymphocytes Absolute Auto 1800 /uL (1100-4500); Lymphocytes Percent Auto 27.6 % (25-40); Mean Corpuscular HGB Conc 34.3 % (30-36); Mean Corpuscular Hemoglobin 32.4 PG (26-34); Mean Corpuscular Volume 94.4 fL (80-100); Monocytes Absolute Auto 500 /uL (0-900); Monocytes Percent Auto 7.3 % (3-14); Neutrophils Absolute Auto 4100 /uL (1500-7000); Platelet Count 359 X10^3/uL (150-400); Red Blood Cell Count 4.51 X10^6/uL (4.5-5.9); Red Cell Distribution Width 13.1 % (11.6-14.8); White Blood Cell Count 6.7 X10^3/uL (4.5-11.0)
[2023-09-21 14:56] LABS: Alanine Aminotransferase 27 IU/L (<50); Albumin 4.6 g/dL (3.5-5.0); Albumin Globulin Ratio 1.7 (1.0-2.8); Alkaline Phosphatase 81 U/L (38-126); Aspartate Aminotransferase 25 IU/L (17-59); BUN Creatinine Ratio 14.8 (6-22); Bilirubin Total 0.9 mg/dL (0.2-1.3); Blood Urea Nitrogen 13 mg/dL (9-20); Calcium 9.6 mg/dL (8.4-10.2); Carbon Dioxide 23 mmol/L (22-32); Chloride 105 mmol/L (98-107); Estimated Glomerular Filt Rate > 60 mL/min (>60); Globulin 2.7 g/dL (1.7-4.1); Glucose 99 mg/dL (80-110); HEMOLYSIS < 15 (0-50); Potassium 5.1 mmol/L (3.4-5.1); Sodium 137 mmol/L (137-145); Total Protein 7.3 g/dL (6.3-8.2)
[2023-09-21 15:01] LABS: Hemoglobin A1C% w Est Avg Glu 6.2 % (4.0-6.0)
[2023-09-21 15:24] LABS: TSH w/ Reflex to FT4 1.62 uIU/mL (0.47-4.68)
[2023-09-21 15:30] LABS: Microalbumin Urine Random 3.4 mg/dL (0-1.6)
== END ==
PROVIDERS: Family Provider Family Medicine; PCP Family Medicine; Referring Provider Family Medicine; Visit Provider Family Medicine
DX: I10 Essential (primary) hypertension (principal); E78.5 Hyperlipidemia, unspecified
CPT/HCPCS: 36415; 80053; 82043; 82570; 83036; 84443; 85025

== ENCOUNTER → 2023-10-14 11:44 | Outpatient (CLI) | payer MEDICARE, SELFPAY ==
--- NOTE | 2023-10-14 11:45 | DI.RAD.S_ITS ---
PROCEDURE: XR SHOULDER RT MIN 2V INDICATIONS: Fell 9 months ago - pain AC joint and deltoid TECHNIQUE: 3 views of the shoulder were acquired. COMPARISON: None. FINDINGS: Bones: No fractures or dislocations. 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 No suspicious bony lesions. Visualized ribs appear intact. Soft tissues: No suspicious soft tissue calcifications. IMPRESSION: No acute osseous abnormalities. 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 Dictated by: Martín Monahan M.D. on 10/14/2023 at 16:12 Approved by: Martín Monahan M.D. on 10/14/2023 at 16:13
== END ==
PROVIDERS: Family Provider Family Medicine; PCP Family Medicine; Referring Provider Physician Assistant; Visit Provider Physician Assistant
DX: M25.511 Pain in right shoulder (principal); E11.40 Type 2 diabetes mellitus with diabetic neuropathy, unspecified; M19.011 Primary osteoarthritis, right shoulder
CPT/HCPCS: 73030

== ENCOUNTER → 2024-05-02 08:08 | Outpatient (CLI) | payer MEDICARE, SELFPAY ==
--- NOTE | 2024-05-02 08:12 | DI.ECHO.S_ITS ---
[facility]+ [facility] : : [address] : : [place] : : [id number] : : Phone: [phone] Echocardiogram Report + + :Name: PATRICE RIOS Study Date: 05/02/2024 Height: 68 in : :Hospital ReadingLocation: Weight: 195 lb : : Gender: Male BSA: 2.0 m2 : :: 1950 Age: 73 yrs BP: 126/83 mmHg: :Reason For Study: CORONARY ARTERY DISEASE : :Ordering Physician: ASAF, : :TJ Performed By: Gabriela Alcantar : :Referring: TJ RON : + + Interpretation Summary The ejection fraction is estimated to be 55-60%. There is mild aortic regurgitation. There is no pericardial effusion. Procedure: A two-dimensional transthoracic echocardiogram with color flow and Doppler was performed. The study quality was technically adequate. There is no prior echocardiogram noted for this patient. The patient was in sinus rhythm with heart rates between 55-67 bpm during the exam. Left Ventricle: The left ventricle is normal in size. Left ventricular wall thickness is borderline increased. The ejection fraction is estimated to be 55-60%. Left ventricular wall motion is normal. Right Ventricle: The right ventricle is normal in size and function. Atria: The left atrial size is normal. Right atrial size is normal. There is no Doppler evidence for an interatrial shunt. Mitral Valve: The mitral valve leaflets appear to open well. There is trace mitral regurgitation. Aortic Valve: There is no aortic valve stenosis. There is mild aortic regurgitation. Tricuspid Valve: The tricuspid valve leaflets are thin and pliable. There is trace tricuspid regurgitation. Pulmonary artery pressures cannot be estimated because of the lack of a measurable TR jet velocity. Pulmonic Valve: The pulmonic valve leaflets are thin and pliable; valve motion is normal. There is a trace or physiologic amount of pulmonic regurgitation. Great Vessels: The aortic root is normal size. The dimensions of the ascending aorta are normal. The inferior vena cava was not well visualized. Pericardium/ Pleura There is no pericardial effusion. There is no pleural effusion. MMode/2D Measurements & Calculations LVIDd: 5.4 cm LVOT diam: 2.1 cm LVIDs: 3.3 cm Ao root diam: 3.7 cm FS: 38.4 % asc Aorta Diam: 3.5 cm EPSS: 1.2 cm Ao Arch Diam (Prox Trans): 2.4 cm IVSd: 0.90 cm LVPWd: 1.2 cm LV olea. diameter/BSA (cm/m^2): 2.7 LV sys. diameter/BSA (cm/m^2): 1.6 LA A2 area: 13.8 cm2 RA long axis: 5.6 cm LA A4 area: 19.6 cm2 RA area: 16.8 cm2 LA length (vol): 5.9 cm RA vol: 42.9 ml LA vol: 39.2 ml RA : 21.2 ml/m2 LA vol index: 19.4 ml/m2 RVD1 (basal): 4.0 cm TAPSE: 2.0 cm Doppler Measurements & Calculations Ao V2 max: 159.5 cm/sec LVOT Max Dony: 110.1 cm/sec Ao V2 mean: 106.8 cm/sec LV V1 max P.8 mmHg Ao max P.2 mmHg LV V1 VTI: 22.9 cm Ao mean P.1 mmHg KARLA(I,D): 2.4 cm2 Ao V2 VTI: 32.9 cm KARLA(V,D): 2.4 cm2 sev ratio: 0.70 KARLA indexed to BSA (cm^2/m^2): 1.2 MV E max dony: 94.6 cm/sec TR max dony: 215.4 cm/sec MV A max dony: 75.8 cm/sec TR max P.6 mmHg MV E/A: 1.2 PA V2 max: 107.5 cm/sec Med Peak E' Dony: 6.6 cm/sec PA V2 mean: 72.4 cm/sec E/E' med: 14.4 PA mean P.4 mmHg Lat Peak E' Dony: 10.3 cm/sec PA pr(Accel): 30.2 mmHg E/E' lat: 9.2 E/e' average: 11.8 MV dec time: 0.21 sec SV(LVOT): 80.5 ml Reading Physician:12:50 PM
[2024-05-02 08:44] LABS: Hemoglobin A1C% w Est Avg Glu 5.9 % (4.0-6.0)
[2024-05-02 08:53] LABS: Alanine Aminotransferase 30 IU/L (<50); Albumin 4.6 g/dL (3.5-5.0); Albumin Globulin Ratio 1.8 (1.0-2.8); Alkaline Phosphatase 82 U/L (38-126); Aspartate Aminotransferase 27 IU/L (17-59); BUN Creatinine Ratio 12.9 (6-22); Bilirubin Total 0.9 mg/dL (0.2-1.3); Blood Urea Nitrogen 11 mg/dL (9-20); Calcium 9.6 mg/dL (8.4-10.2); Carbon Dioxide 22 mmol/L (22-32); Chloride 106 mmol/L (98-107); Cholesterol 126 mg/dL (140-199); Estimated Glomerular Filt Rate > 60 mL/min (>60); Globulin 2.5 g/dL (1.7-4.1); Glucose 109 mg/dL (80-110); HDL Cholesterol 37 mg/dL (40-60); HEMOLYSIS < 15 (0-50); LDL Cholesterol Calculated 27 mg/dL (<100); Potassium 4.6 mmol/L (3.4-5.1); Sodium 138 mmol/L (137-145); Total Protein 7.1 g/dL (6.3-8.2); Triglycerides 310 mg/dL (35-150)
[2024-05-02 09:17] LABS: TSH w/ Reflex to FT4 2.23 uIU/mL (0.47-4.68)
[2024-05-02 09:21] LABS: Prostate Specific Antigen Scrn 1.56 ng/mL (0.1-4.0)
== END ==
PROVIDERS: Physician Assistant; Family Provider Family Medicine; PCP Family Medicine; Visit Provider Nurse Practitioner Family
DX: I35.1 Nonrheumatic aortic (valve) insufficiency (principal); I25.10 Atherosclerotic heart disease of native coronary artery without angina pectoris; I25.2 Old myocardial infarction; E11.40 Type 2 diabetes mellitus with diabetic neuropathy, unspecified; I10 Essential (primary) hypertension; E78.5 Hyperlipidemia, unspecified; Z12.5 Encounter for screening for malignant neoplasm of prostate; Z95.820 Peripheral vascular angioplasty status with implants and grafts
CPT/HCPCS: 36415; 80053; 80061; 83036; 84443; 93306; G0103

== ENCOUNTER → 2024-12-14 15:30 | Outpatient (CLI) | payer MEDICARE, SELFPAY ==
[2024-12-14 16:06] LABS: Hemoglobin A1C% w Est Avg Glu 6.5 % (4.0-6.0)
[2024-12-14 16:28] LABS: Blood Urea Nitrogen 12 mg/dL (9-20); Calcium 9.6 mg/dL (8.4-10.2); Carbon Dioxide 23 mmol/L (22-32); Chloride 102 mmol/L (98-107); Estimated Glomerular Filt Rate > 60 mL/min (>60); Glucose 161 mg/dL (70-99); HEMOLYSIS < 15 (0-50); Potassium 4.7 mmol/L (3.4-5.1); Sodium 136 mmol/L (137-145)
== END ==
PROVIDERS: PCP Family Medicine; Referring Provider Family Medicine; Visit Provider Family Medicine
DX: E11.40 Type 2 diabetes mellitus with diabetic neuropathy, unspecified (principal); I25.118 Atherosclerotic heart disease of native coronary artery with other forms of angina pectoris
CPT/HCPCS: 36415; 80048; 83036